=== PATIENT | female | born 1950 | race Caucasian/White ===

== ENCOUNTER → 2019-02-09 | Day surgery (SDC) | payer BC, OTHER ==
[~2019-02-09] MED LIST: Lidocaine 1% 20 ML MDV ONE
[2019-02-09 14:15] VITALS: BP 100/50; PULSE 66
== END ==
LOC: CC.SDS 10:23
PROVIDERS: ATTEND Family Medicine
DX: I83.12 Varicose veins of left lower extremity with inflammation (principal); I83.11 Varicose veins of right lower extremity with inflammation

== ENCOUNTER 2019-06-18 22:37 | Emergency (ER) | payer BC, OTHER ==
[2019-06-18 22:45] VITALS: PULSE 107
[2019-06-18] MEDS ORDERED: Albuterol/Ipratropium 3.0-0.5 MG/3 ML Neb Soln NEB ONE (22:57)
--- NOTE | 2019-06-18 23:16 | EDM.PDOC ---
ED HPI GENERAL MEDICAL PROBLEM - General Chief Complaint: Respiratory Problem Stated Complaint: cough, fever Time Seen by Provider: 06/18/19 22:57 Source of Information: Reports: Patient History Limitations: Reports: No Limitations - History of Present Illness INITIAL COMMENTS - FREE TEXT/NARRATIVE: This patient is a 69 year old female that presents to the ER. Patient reports that 2 days ago having congestion, nonproductive cough. She reports seeing her PCP and being prescribed abx. Patient reports she has worsened the last 2 days. She reports now she has headache, body aches, congestion, chest congestion, nonproductive cough, nausea, and dry heaving. Onset Date: 06/16/19 Duration: Day(s): (2) Location: Reports: Head, Chest Quality: Reports: Ache Severity: Moderate Improves with: Reports: None Worsens with: Reports: None Associated Symptoms: Reports: Cough, Fever/Chills, Headaches, Malaise, Nausea/ Vomiting, Shortness of Breath. Denies: Confusion, Chest Pain, cough w sputum, Diaphoresis, Loss of Appetite, Rash, Seizure, Syncope, Weakness Generalized Pain Score (Numeric/FACES): 4 - Related Data Allergies Allergy/AdvReac Type Severity Reaction Status Date / Time meperidine HCl [From Demerol] Allergy Unknown Rash Verified 06/18/19 22:38 pentazocine lactate Allergy Unknown Rash Verified 06/18/19 22:38 [From Talwin] promazine HCl [From Sparine] Allergy Unknown Rash Verified 06/18/19 22:38 levofloxacin [From Levaquin] Allergy Itching Verified 06/18/19 22:38 Home Meds: Home Meds Amitriptyline HCl 50 mg PO BEDTIME 12/06/13 [History] Cyclobenzaprine [Flexeril] 10 mg PO BID PRN 12/06/13 [History] Esomeprazole Magnesium [Nexium] 40 mg PO BEDTIME 12/06/13 [History] Hydrochlorothiazide 12.5 mg PO DAILY 12/06/13 [History] Levothyroxine Sodium [Synthroid] 75 mcg PO DAILY 12/06/13 [History] atenoloL [Tenormin] 25 mg PO BID 12/06/13 [History] Albuterol [Ventolin HFA] 2 puff INH Q4H PRN 12/07/13 [History] Budesonide [Pulmicort Flexhaler] 2 puff IH BID PRN 12/07/13 [History] Montelukast [Singulair] 10 mg PO DAILY 09/23/15 [History] Fluticasone Propionate [Flovent] 50 mcg NASBOTH DAILY PRN 02/24/18 [History] Fluticasone/Vilanterol [Breo Ellipta 200-25 MCG Inhalation Kit] 1 each INH BEDTIME 02/24/18 [History] Ipratropium/Albuterol Sulfate [Iprat-Albut 0.5-3(2.5) mg/3 ml] 1 each INH ASDIRECTED PRN 02/24/18 [History] Pramipexole Di-HCl [Pramipexole Dihydrochloride] 0.5 mg PO BEDTIME 02/24/18 [ History] Torsemide 20 mg PO DAILY 02/24/18 [History] cefUROXime axetil [Cefuroxime] 500 mg PO BID 06/18/19 [History] methylPREDNISolone [Medrol Dose Pack] 4 mg PO ASDIRECTED #1 dospk 06/18/19 [Rx] Past Medical History HEENT History: Reports: Cataract Cardiovascular History: Reports: Blood Clots/VTE/DVT, Heart Murmur Respiratory History: Reports: Asthma, Bronchitis, Recurrent Gastrointestinal History: Reports: Chronic Constipation, GERD, PUD Genitourinary History: Reports: None 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: Musculoskeletal History: Reports: Arthritis, Fibromyalgia Neurological History: Reports: Concussion, Vertigo Endocrine/Metabolic History: Reports: Hypothyroidism - Past Surgical History HEENT Surgical History: Reports: Cataract Surgery, Naso-Sinus Surgery, Tonsillectomy Cardiovascular Surgical History: Reports: Varicose Respiratory Surgical History: Reports: None GI Surgical History: Reports: Appendectomy, Cholecystectomy, Colonoscopy, EGD Female Surgical History: Reports: Hysterectomy Endocrine Surgical History: Reports: None Neurological Surgical History: Reports: None Musculoskeletal Surgical History: Reports: None Social & Family History - Family History Family Medical History: Noncontributory - Tobacco Use Smoking Status *Q: Never Smoker - Caffeine Use Caffeine Use: Reports: Coffee - Recreational Drug Use Recreational Drug Use: No ED ROS GENERAL - Review of Systems Review Of Systems: See Below Constitutional: Reports: Fever, Chills, Malaise, Fatigue HEENT: Reports: Sinus Problem Respiratory: Reports: Shortness of Breath, Wheezing, Cough. Denies: Sputum Cardiovascular: Reports: No Symptoms Endocrine: Reports: No Symptoms GI/Abdominal: Reports: Nausea. Denies: Abdominal Pain, Vomiting : Reports: No Symptoms Musculoskeletal: Reports: Other (body aches) Skin: Reports: No Symptoms Neurological: Reports: Headache Psychiatric: Reports: No Symptoms Hematologic/Lymphatic: Reports: No Symptoms Immunologic: Reports: No Symptoms ED EXAM, GENERAL - Physical Exam Exam: See Below Exam Limited By: No Limitations General Appearance: Alert, WD/WN, No Apparent Distress, Other (appears acutely ill) Eye Exam: Bilateral Eye: Normal Inspection, PERRL Ears: Normal External Exam, Normal Canal, Hearing Grossly Normal, Normal TMs Ear Exam: Bilateral Ear: Auricle Normal, Canal Normal, TM normal Nose: Normal Inspection, Normal Mucosa, No Blood Throat/Mouth: Normal Inspection, Normal Lips, Normal Teeth, Normal Gums, Normal Oropharynx, Normal Voice, No Airway Compromise Head: Atraumatic, Normocephalic Neck: Normal Inspection, Supple, Non-Tender, Full Range of Motion Respiratory/Chest: No Respiratory Distress, No Accessory Muscle Use, Wheezing ( moderate throughout, inspiratory and expiratory. ) Cardiovascular: Normal Peripheral Pulses, No Edema, No Gallop, No JVD, No Murmur , No Rub, Tachycardia (104 on exam) Peripheral Pulses: 2+: Radial (L), Radial (R), Posterior Tibial (L), Posterior Tibial (R) GI/Abdominal: Soft, Non-Tender Back Exam: Normal Inspection Extremities: Normal Inspection, Normal Range of Motion, Non-Tender, No Pedal Edema, Normal Capillary Refill Neurological: Alert, Oriented Psychiatric: Normal Affect, Normal Mood Skin Exam: Warm, Dry, Intact, Normal Color, No Rash Lymphatic: No Adenopathy Course - Vital Signs Last Recorded V/S: Last Vital Signs Temp 100.8 F H 06/18/19 22:38 Pulse 107 H 06/18/19 22:38 Resp 20 06/18/19 22:38 BP 113/60 06/18/19 23:31 Pulse Ox 97 06/18/19 22:38 - Orders/Labs/Meds Orders: Active Orders 24 hr Category Date Time Status RT Aerosol Therapy [RC] ASDIRECTED Care 06/18/19 22:57 Active Chest 2V [CR] Stat Exams 06/18/19 22:57 Taken CULTURE BLOOD [BC] Stat Lab 06/18/19 22:57 Results CULTURE BLOOD [BC] Stat Lab 06/18/19 23:21 Received methylPREDNISolone Sod Succ [Solu-MEDROL] Med 06/18/19 23:52 Stat 125 mg IM NOW STA Blood Culture x2 Reflex Set [OM.PC] Stat Oth 06/18/19 22:56 Ordered Labs: Laboratory Tests 06/18/19 06/18/19 06/18/19 Range/Units 22:56 23:21 23:21 WBC 6.9 (5.0-10.0) 10^3/uL RBC 4.26 (4.00-5.50) 10^6/uL Hgb 12.9 (12.0-16.0) g/dL Hct 38.6 (37.0-47.0) % MCV 90.6 (82.0-94.0) fL MCH 30.3 (27.0-32.0) pg MCHC 33.4 (33.0-38.0) g/dL RDW Coeff of Neal 14.0 (11.0-15.0) % Plt Count 259 (150-400) 10^3/uL Neut % (Auto) 77.1 (35-85) % Lymph % (Auto) 13.9 (10-55) % [place] % (Auto) 8.9 (0-16) % Eos % (Auto) 0 (0-5) % Baso % (Auto) 0.1 (0-3) % Neut # (Auto) 5.34 (1.80-7.00) 10^3/uL Lymph # (Auto) 0.96 L (1.00-4.80) 10^3/uL [place] # (Auto) 0.62 (0.00-0.80) 10^3/uL Eos # (Auto) 0.00 (0.00-0.45) 10^3/uL Baso # (Auto) 0.01 10^3/uL Sodium 136 (136-145) mEq/L Potassium 3.8 (3.5-5.0) mEq/L Chloride 97 L (98-106) mEq/L Carbon Dioxide 27 (21-32) mmol/L BUN 10 (7-18) mg/dL Creatinine 0.8 (0.6-1.0) mg/dL Est Cr Clr Drug Dosing 48.34 mL/min Estimated GFR (MDRD) > 60 (>=60) mL/min Glucose 119 H (75-99) mg/dL Lactic Acid 1.4 (0.4-2.0) mmol/L Calcium 8.8 (8.4-10.1) mg/dL Total Bilirubin 0.2 (0.0-1.0) mg/dL AST 23 (15-37) U/L ALT 24 (12-78) U/L Alkaline Phosphatase 70 (46-116) U/L C-Reactive Protein 6.2 H (0.2-0.8) mg/dL Total Protein 7.1 (6.4-8.2) g/dL Albumin 3.4 (3.4-5.0) g/dL Meds: Medications Discontinued Medications Generic Name Dose Route Start Last Admin Trade Name Freq PRN Reason Stop Dose Admin Albuterol/Ipratropium 3 ml 06/18/19 22:57 06/18/19 23:14 Duoneb 3.0-0.5 Mg/3 Ml NEB 06/18/19 22:58 3 ml ONETIME ONE Administration - Radiology Interpretation Free Text/Narrative:: CXR: No infiltrates, no pulmonary edema. Departure - Departure Time of Disposition: 23:50 Disposition: Home, Self-Care 01 Condition: Fair Clinical Impression: Acute bronchitis Qualifiers: Bronchitis organism: unspecified organism Qualified Code(s): J20.9 - Acute bronchitis, unspecified - Discharge Information *PRESCRIPTION DRUG MONITORING PROGRAM REVIEWED*: Not Applicable *COPY OF PRESCRIPTION DRUG MONITORING REPORT IN PATIENT CIRO: Not Applicable Prescriptions: methylPREDNISolone [Medrol Dose Pack] 4 mg PO ASDIRECTED #1 dospk Instructions: Shortness of Breath, Adult, [id number], Acute Bronchitis, Adult , [id number] Referrals: PCP,None [Primary Care Provider] - Forms: ED Department Discharge Additional Instructions: Followup with your primary care provider Return to the ER for worsening of condition or any emergent concerns Continue antibiotic as prescribed Medrol Dose Pack as directed: Sent to pharmacy Continue your breathing treatments at home. Sepsis Event Note - Evaluation Sepsis Screening Result: Possible Severe Sepsis Risk - Focused Exam Vital Signs: Vital Signs Temp Pulse Resp BP Pulse Ox 06/18/19 23:31 113/60 02/09/20 22:38 100.8 F H 107 H 20 105/43 L 97 Date Exam was Performed: 06/18/19 Time Exam was Performed: 23:52 - My Orders Last 24 Hours: My Active Orders 06/18/19 22:56 Blood Culture x2 Reflex Set [OM.PC] Stat 06/18/19 22:57 RT Aerosol Therapy [RC] ASDIRECTED Chest 2V [CR] Stat CULTURE BLOOD [BC] Stat 06/18/19 23:21 CULTURE BLOOD [BC] Stat 06/18/19 23:52 methylPREDNISolone Sod Succ [Solu-MEDROL] 125 mg IM NOW STA - Assessment/Plan Last 24 Hours: My Active Orders 06/18/19 22:56 Blood Culture x2 Reflex Set [OM.PC] Stat 06/18/19 22:57 RT Aerosol Therapy [RC] ASDIRECTED Chest 2V [CR] Stat CULTURE BLOOD [BC] Stat 06/18/19 23:21 CULTURE BLOOD [BC] Stat 06/18/19 23:52 methylPREDNISolone Sod Succ [Solu-MEDROL] 125 mg IM NOW STA Plan: PLEASE SEE RN NOTE FOR PFSH
[2019-06-18 23:30] LABS: CHLORIDE,CL 97 mEq/L (98-106); SODIUM,NA 136 mEq/L (136-145)
[2019-06-18 23:32] VITALS: BP 113/60
[2019-06-18] MEDS ORDERED: methylPREDNISolone Sodium Succinate 125 MG/2 ML SDV IM STA (23:52)
== END 2019-06-19 00:03 | disposition home or self-care (01) ==
LOC: CC.ED 22:37
DX: J20.9 Acute bronchitis, unspecified (principal); K21.9 Gastro-esophageal reflux disease without esophagitis; J45.909 Unspecified asthma, uncomplicated; M19.90 Unspecified osteoarthritis, unspecified site; E03.9 Hypothyroidism, unspecified; Z86.718 Personal history of other venous thrombosis and embolism; Z88.8 Allergy status to other drugs, medicaments and biological substances; Z79.899 Other long term (current) drug therapy
CPT/HCPCS: 36415; 71046; 80053; 83605; 85025; 86140; 87040; 87804; 94640; 96372; 99284-25; J2930; J7620-GY

== ENCOUNTER → 2019-08-25 | Day surgery (SDC) | payer BC, OTHER ==
[~2019-08-25] MED LIST changes: +Lactated Ringers 1,000 ML IV SCH; -Lidocaine 1% 20 ML MDV ONE; +Propofol 200 MG/20 ML SDV IV ONE; +fentaNYL 100 MCG/2 ML SDV IV ONE
[2019-08-25] MEDS: Lactated Ringers 1,000 ML IV SCH (11:12)
--- NOTE | 2019-08-25 12:12 | OR ---
DATE OF OPERATION: PREOPERATIVE DIAGNOSIS: 1. FAMILY HISTORY OF COLON CANCER. 2. OBSTIPATION. POSTOPERATIVE DIAGNOSIS: 1. FAMILY HISTORY OF COLON CANCER. 2. OBSTIPATION. SURGEON: Adam Pérez MD PROCEDURE: DIAGNOSTIC FULL-LENGTH COLONOSCOPY WITH SNARE POLYPECTOMY X1. ANESTHESIA: MAC. COMPLICATIONS: None. SPECIMEN: Tubular adenoma at cecum, 0.5 cm in size. FINDINGS: 1. Full-length colonoscopy. 2. Tubular adenoma at cecal pouch, approximately 5 mm. 3. Poor bowel prep. RECOMMENDATIONS: Followup colonoscopy every 5 years. INDICATIONS: The patient has a family history of colon cancer. It has been 5 years since her last scope. She went to her primary provider with complaints of constipation. Diagnostic endoscopy was ordered. DESCRIPTION OF PROCEDURE: The patient was prepped and draped, placed in the left lateral decubitus position. A lubricated Olympus colonoscope was inserted and easily advanced to the cecum. Direct visualization of the ileocecal valve and appendiceal orifice was accomplished. Bowel prep was very poor. We had to irrigate immensely in the right colon, and there were a few areas in this transverse and multiple in the sigmoid that just could not be irrigated due to the solidity of the stool, and the scope kept plugging. We spent much time on the right colon irrigating so we could get a good look. In the cecal pouch, the patient had 1 small 5 mm tubular adenoma removed easily with a snare and suctioned into polyp trap #1. Throughout the rest of the colon, I could find no other polyps, masses, ulceration, or bleeding sites. No vascular abnormalities or signs of diverticula. The rectal vault appeared benign. Retroflexion showed no perianal lesions. Air was suctioned, and the scope was removed without complication. MALCOM/MERVAT /[id number]
[2019-08-25 12:31] VITALS: BP 114/44; PULSE 73
== END ==
LOC: CC.SDS 10:27
PROVIDERS: ATTEND Family Medicine
DX: D12.0 Benign neoplasm of cecum (principal); E78.5 Hyperlipidemia, unspecified; E03.9 Hypothyroidism, unspecified; J45.909 Unspecified asthma, uncomplicated; Z79.890 Hormone replacement therapy; Z79.899 Other long term (current) drug therapy; Z80.0 Family history of malignant neoplasm of digestive organs; Z88.1 Allergy status to other antibiotic agents; Z88.8 Allergy status to other drugs, medicaments and biological substances; Z88.5 Allergy status to narcotic agent; Z98.890 Other specified postprocedural states
CPT/HCPCS: 45385; J2704; J3010; J7120

== ENCOUNTER 2020-02-11 22:13 | Emergency (ER) | payer BC, OTHER ==
[2020-02-11 22:49] LABS: CHLORIDE,CL 99 mEq/L (98-106); SODIUM,NA 134 mEq/L (136-145)
[2020-02-11] MEDS: Ondansetron 8 MG in Sodium Chloride 0.9% 50 ML IV STA (23:09)
--- NOTE | 2020-02-11 23:31 | EDM.PDOC ---
ED HPI GENERAL MEDICAL PROBLEM - General Chief Complaint: Respiratory Problem Stated Complaint: SOB, Chest pressure R/T Covid + Time Seen by Provider: 02/11/20 22:13 Source of Information: Reports: Patient History Limitations: Reports: No Limitations - History of Present Illness INITIAL COMMENTS - FREE TEXT/NARRATIVE: Pt tested positive COVID on Wednesday for preop and was asymptomatic at that time. She began to have symptoms Wednesday evening and was "doing OK" until Wednesday night when she started to have harsh cough and SOB. Symptoms have continued to get worse and today she did call [facility] ER and was started on Dexamethasone 6 mg po as she did not want to come in. She was also instructed to use her albuterol inhaler every 4 hours which she had not been doing. She states that she has been very nauseated but not vomited the last 2 days but has not been eating or drinking well because of it. She states that the last 2 days the cough is worse and she feels very tight in her chest like someone is sitting on her. She states the highest her temp has been is 100.9 and if she takes Tylenol it will go down to the 97 range. She states that she will be sweating and in a few minutes she is shivering and freezing. She came in tonight as her symptoms were getting worse. When she arrived her she has respirations at 36-40 on room air with very harsh cough. She states it feels difficult to take a breathe as her chest feels tight. Cough is non productive and very harsh. very nauseated with it. She is visibly sweating to her head and then has shaking chills shortly after that. She is pale. Onset: Gradual Location: Reports: Chest Associated Symptoms: Reports: Cough, Diaphoresis, Fever/Chills, Shortness of Breath, Weakness Treatments SPECIAL EDUCATION DIRECTOR: Reports: Acetaminophen - Related Data Allergies Allergy/AdvReac Type Severity Reaction Status Date / Time meperidine HCl [From Demerol] Allergy Unknown Rash Verified 02/11/20 22:31 pentazocine lactate Allergy Unknown Rash Verified 02/11/20 22:31 [From Talwin] promazine HCl [From Sparine] Allergy Unknown Rash Verified 02/11/20 22:31 levofloxacin [From Levaquin] Allergy Itching Verified 02/11/20 22:31 Home Meds: Home Meds Amitriptyline HCl 50 mg PO BEDTIME 07/30/14 [History] Esomeprazole Magnesium [Nexium] 40 mg PO BEDTIME 12/06/13 [History] Hydrochlorothiazide 12.5 mg PO DAILY 12/06/13 [History] Levothyroxine Sodium [Synthroid] 75 mcg PO DAILY 12/06/13 [History] atenoloL [Tenormin] 25 mg PO BID 12/06/13 [History] Albuterol [Ventolin HFA] 2 puff INH Q4H PRN 12/07/13 [History] Montelukast [Singulair] 10 mg PO DAILY 09/23/15 [History] Fluticasone Propionate [Flovent] 1 spray NASBOTH BID 02/24/18 [History] Fluticasone/Vilanterol [Breo Ellipta 200-25 MCG Inhalation Kit] 1 each INH BEDTIME 02/24/18 [History] Ipratropium/Albuterol Sulfate [Iprat-Albut 0.5-3(2.5) mg/3 ml] 1 each NEB ASDIRECTED PRN 02/24/18 [History] Pramipexole Di-HCl [Pramipexole Dihydrochloride] 0.5 mg PO BEDTIME 02/24/18 [History] Oxybutynin Chloride [Oxybutynin Chloride ER] 10 mg PO DAILY 08/08/19 [History] Rosuvastatin Calcium 5 mg PO DAILY 08/08/19 [History] amLODIPine Besylate [Amlodipine Besylate] 50 mg PO DAILY 08/08/19 [History] dexAMETHasone [Dexamethasone] 6 mg PO DAILY 02/11/20 [History] Past Medical History HEENT History: Reports: Cataract Cardiovascular History: Reports: Blood Clots/VTE/DVT, Heart Murmur Other Cardiovascular History: Had bilateral blood clots in legs about 30 years ago Respiratory History: Reports: Asthma, Bronchitis, Recurrent Gastrointestinal History: Reports: Chronic Constipation, GERD, PUD Genitourinary History: Reports: 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: Musculoskeletal History: Reports: Arthritis, Fibromyalgia Neurological History: Reports: Concussion, Vertigo Endocrine/Metabolic History: Reports: Hypothyroidism - Past Surgical History HEENT Surgical History: Reports: Cataract Surgery, Naso-Sinus Surgery, Tonsillectomy Cardiovascular Surgical History: Reports: Varicose Respiratory Surgical History: Reports: None GI Surgical History: Reports: Appendectomy, Cholecystectomy, Colonoscopy, EGD Female Surgical History: Reports: Hysterectomy Endocrine Surgical History: Reports: None Neurological Surgical History: Reports: None Musculoskeletal Surgical History: Reports: None Social & Family History - Family History Family Medical History: Noncontributory - Tobacco Use Smoking Status *Q: Never Smoker - Caffeine Use Caffeine Use: Reports: None - Recreational Drug Use Recreational Drug Use: No - Living Situation & Occupation Living situation: Reports: , with Spouse Occupation: Employed ED ROS GENERAL - Review of Systems Review Of Systems: See Below Constitutional: Reports: Fever, Chills, Weakness, Fatigue, Decreased Appetite HEENT: Reports: No Symptoms Respiratory: Reports: Shortness of Breath, Wheezing, Cough. Denies: Sputum Cardiovascular: Denies: Chest Pain, Edema GI/Abdominal: Reports: No Symptoms. Denies: Abdominal Pain Musculoskeletal: Reports: No Symptoms Skin: Reports: No Symptoms Neurological: Reports: No Symptoms Psychiatric: Reports: Anxiety ED EXAM, GENERAL - Physical Exam Exam: See Below Exam Limited By: No Limitations General Appearance: Alert, Anxious, Moderate Distress Ears: Normal External Exam, Normal Canal, Normal TMs Throat/Mouth: Normal Inspection, Normal Oropharynx Head: Atraumatic, Normocephalic Neck: Normal Inspection, Supple, Non-Tender Respiratory/Chest: Respiratory Distress, Rhonchi, Wheezing, Other (respiration are shallow and rapid.) Cardiovascular: Regular Rate, Rhythm, No Edema GI/Abdominal: Normal Bowel Sounds, Soft, Non-Tender Extremities: Normal Inspection, Normal Range of Motion, No Pedal Edema Neurological: Alert, Oriented Skin Exam: Warm, Intact, Diaphoretic, Pallor Course - Vital Signs Last Recorded V/S: Last Vital Signs Temp 97.6 F 02/11/20 23:04 Pulse 87 02/11/20 23:04 Resp 24 H 02/11/20 23:04 BP 132/58 L 02/11/20 23:04 Pulse Ox 96 02/11/20 23:04 - Orders/Labs/Meds Orders: Active Orders 24 hr Category Date Time Status Chest 1V Frontal [CR] Stat Exams 02/11/20 21:56 Stop Req Chest 2V [CR] Stat Exams 02/11/20 23:09 Ordered Ondansetron [Zofran] 8 mg Med 02/11/20 23:02 Ordered Sodium Chloride 0.9% [Normal Saline] 50 ml IV NOW Isolation [COMM] Routine Oth 02/11/20 22:43 Active Medication Orders Ondansetron HCl 8 mg/ Sodium (Chloride) 54 mls @ 100 mls/hr IV NOW STA Stop: 02/11/20 23:34 Last Admin: 02/11/20 23:09 Dose: 100 mls/hr Documented by: [place] Labs: Laboratory Tests 02/11/20 02/11/20 02/11/20 Range/Units 22:30 22:30 22:30 WBC 6.7 (5.0-10.0) 10^3/uL RBC 4.66 (4.00-5.50) 10^6/uL Hgb 13.9 (12.0-16.0) g/dL Hct 41.3 (37.0-47.0) % MCV 88.6 (82.0-94.0) fL MCH 29.8 (27.0-32.0) pg MCHC 33.7 (33.0-38.0) g/dL RDW Coeff of Neal 14.2 (11.0-15.0) % Plt Count 263 (150-400) 10^3/uL Neut % (Auto) 86.3 H (35-85) % Lymph % (Auto) 9.6 L (10-55) % [place] % (Auto) 3.9 (0-16) % Eos % (Auto) 0 (0-5) % Baso % (Auto) 0.2 (0-3) % Neut # (Auto) 5.75 (1.80-7.00) 10^3/uL Lymph # (Auto) 0.64 L (1.00-4.80) 10^3/uL [place] # (Auto) 0.26 (0.00-0.80) 10^3/uL Eos # (Auto) 0.00 (0.00-0.45) 10^3/uL Baso # (Auto) 0.01 10^3/uL D-Dimer, Quantitative 0.51 H (0.00-0.50) Sodium 134 L (136-145) mEq/L Potassium 4.3 (3.5-5.0) mEq/L Chloride 99 (98-106) mEq/L Carbon Dioxide 23 (21-32) mmol/L BUN 17 (7-18) mg/dL Creatinine 0.9 (0.6-1.0) mg/dL Est Cr Clr Drug Dosing 49.49 mL/min Estimated GFR (MDRD) > 60 (>=60) mL/min Glucose 153 H D (75-99) mg/dL Lactic Acid (0.4-2.0) mmol/L Calcium 8.8 (8.4-10.1) mg/dL Total Bilirubin 0.2 (0.0-1.0) mg/dL AST 59 H (15-37) U/L ALT 78 (12-78) U/L Alkaline Phosphatase 78 (46-116) U/L C-Reactive Protein 3.7 H (0.2-0.8) mg/dL Total Protein 7.2 (6.4-8.2) g/dL Albumin 3.3 L (3.4-5.0) g/dL 02/11/20 Range/Units 22:30 WBC (5.0-10.0) 10^3/uL RBC (4.00-5.50) 10^6/uL Hgb (12.0-16.0) g/dL Hct (37.0-47.0) % MCV (82.0-94.0) fL MCH (27.0-32.0) pg MCHC (33.0-38.0) g/dL RDW Coeff of Neal (11.0-15.0) % Plt Count (150-400) 10^3/uL Neut % (Auto) (35-85) % Lymph % (Auto) (10-55) % [place] % (Auto) (0-16) % Eos % (Auto) (0-5) % Baso % (Auto) (0-3) % Neut # (Auto) (1.80-7.00) 10^3/uL Lymph # (Auto) (1.00-4.80) 10^3/uL [place] # (Auto) (0.00-0.80) 10^3/uL Eos # (Auto) (0.00-0.45) 10^3/uL Baso # (Auto) 10^3/uL D-Dimer, Quantitative (0.00-0.50) Sodium (136-145) mEq/L Potassium (3.5-5.0) mEq/L Chloride (98-106) mEq/L Carbon Dioxide (21-32) mmol/L BUN (7-18) mg/dL Creatinine (0.6-1.0) mg/dL Est Cr Clr Drug Dosing mL/min Estimated GFR (MDRD) (>=60) mL/min Glucose (75-99) mg/dL Lactic Acid 2.3 H (0.4-2.0) mmol/L Calcium (8.4-10.1) mg/dL Total Bilirubin (0.0-1.0) mg/dL AST (15-37) U/L ALT (12-78) U/L Alkaline Phosphatase (46-116) U/L C-Reactive Protein (0.2-0.8) mg/dL Total Protein (6.4-8.2) g/dL Albumin (3.4-5.0) g/dL Meds: Medications Generic Name Dose Route Start Last Admin Trade Name Freq PRN Reason Stop Dose Admin Ondansetron HCl 8 mg/ Sodium 54 mls @ 100 mls/hr 02/11/20 23:02 02/11/20 23:09 Chloride IV 02/11/20 23:34 100 mls/hr NOW STA Administration - Re-Assessments/Exams Free Text/Narrative Re-Assessment/Exam: 02/11/20 23:[address] [facility] and they do not have a COVID bed available 02/11/20 23:30 Called [facility] and they do not have a COVID bed available 02/11/20 2332 Called [facility] and they have bed available and will call back when MD available 02/11/20 1735 [facility] returned call and talked to Dr. Gann who did accept pt. Departure - Departure Time of Disposition: 00:11 Disposition: DC/Tfer to Acute Hospital 02 Condition: Serious Clinical Impression: COVID-19, Pneumonia due to 2019 novel coronavirus - Discharge Information *PRESCRIPTION DRUG MONITORING PROGRAM REVIEWED*: Not Applicable *COPY OF PRESCRIPTION DRUG MONITORING REPORT IN PATIENT CIRO: Not Applicable Additional Instructions: Transfer ALS to [facility] per [place] [facility]. Sepsis Event Note (ED) - Evaluation Sepsis Screening Result: Possible Sepsis Risk - Focused Exam Vital Signs: Vital Signs Temp Pulse Resp BP Pulse Ox 02/11/20 23:04 97.6 F 87 24 H 132/58 L 96 02/11/20 22:13 96.8 F L 92 28 H 128/71 95 - Problem List & Annotations (1) COVID-19 SNOMED Code(s): 497405480 Code(s): U07.1 - COVID-19 Status: Acute Priority: High Current Visit: Yes (2) Pneumonia due to 2019 novel coronavirus SNOMED Code(s): 651672466215710469 Code(s): U07.1 - COVID-19; J12.89 - OTHER VIRAL PNEUMONIA Status: Acute Priority: High Current Visit: Yes - Problem List Review Problem List Initiated/Reviewed/Updated: Yes - My Orders Last 24 Hours: My Active Orders 02/11/20 21:56 Chest 1V Frontal [CR] Stat 02/11/20 22:43 Isolation [COMM] Routine 02/11/20 23:02 Ondansetron [Zofran] 8 mg Sodium Chloride 0.9% [Normal Saline] 50 ml IV NOW 02/11/20 23:09 Chest 2V [CR] Stat - Assessment/Plan Last 24 Hours: My Active Orders 02/11/20 21:56 Chest 1V Frontal [CR] Stat 02/11/20 22:43 Isolation [COMM] Routine 02/11/20 23:02 Ondansetron [Zofran] 8 mg Sodium Chloride 0.9% [Normal Saline] 50 ml IV NOW 02/11/20 23:09 Chest 2V [CR] Stat
[2020-02-12] MEDS: Enoxaparin 40 MG/0.4 ML Syringe SUBCUT STA (00:13)
[2020-02-12 00:44] VITALS: BP 117/71; PULSE 86
== END 2020-02-12 01:25 ==
LOC: CC.ED 22:13
DX: U07.1 COVID-19 (principal); J12.89 Other viral pneumonia; J45.909 Unspecified asthma, uncomplicated; K21.9 Gastro-esophageal reflux disease without esophagitis; E03.9 Hypothyroidism, unspecified; Z88.8 Allergy status to other drugs, medicaments and biological substances; Z79.899 Other long term (current) drug therapy
CPT/HCPCS: 71046; 80053; 83605; 85025; 85379; 86140; 96365; 96372; 99285-25; J1650; J2405; J7050

== ENCOUNTER 2021-04-13 00:14 | Emergency (ER) | payer OTHER ==
[2021-04-13] MEDS ORDERED: Ondansetron 4 MG/2 ML SDV IVPUSH PRN (00:34)
[2021-04-13] MEDS ORDERED: Sodium Chloride 0.9% 10 ML Syringe FLUSH PRN (00:34)
[2021-04-13] MEDS ORDERED: Sucralfate Suspension 1 GM/10 ML Cup PO ONE (00:34)
[2021-04-13] MEDS ORDERED: Sodium Chloride 0.9% 1,000 ML IV ONE (00:34)
[2021-04-13] MEDS ORDERED: fentaNYL 50 MCG/ML SDV IVPUSH ONE (00:39)
[2021-04-13] MEDS ORDERED: Ondansetron 4 MG/2 ML SDV IVPUSH ONE (00:48)
--- NOTE | 2021-04-13 00:48 | EDM.PDOC ---
ED HPI GENERAL MEDICAL PROBLEM - General Chief Complaint: General Stated Complaint: fever, abd pain Time Seen by Provider: 04/13/21 00:35 Source of Information: Reports: Patient History Limitations: Reports: No Limitations - History of Present Illness INITIAL COMMENTS - FREE TEXT/NARRATIVE: Patient presents to the Ed with abdominal pain, fever, feeling unwell since 04/10. Patient has a history of covid 19 infection one year ago. Has had covid vaccination with booster on 04/09/2021. Shortly after her covid booster she developed body aches, fevers, abdominal pain and nausea. she was seen on at the clinic on 04/10/2021 for an im injection for nausea and was sent home with nausea medication which she has been taking. States her abdominal pain has been getting worse since then with minimal passing of gas, no constipation. she took two dulculax with minimal output yesterday. She has been throwing up to the point of dry heaves today. She has been losing weight over the last month or so and has had a thyroid ultrasound that was normal and an upper gi with small bowel follow through and is set to see Dr. Ibarra in [place] for upper and lower endoscopy. She is having cramping of her hands tonight and cramping of the abdomen. Onset Date: 04/10/21 Duration: Getting Worse Location: Reports: Abdomen, Generalized Severity: Moderate Associated Symptoms: Reports: Fever/Chills, Headaches, Loss of Appetite, Nausea/Vomiting, Weakness Treatments PROCUREMENT PROFESSIONAL: Reports: Other (see below) (zofran ) - Related Data Allergies Allergy/AdvReac Type Severity Reaction Status Date / Time meperidine HCl [From Demerol] Allergy Unknown Rash Verified 04/13/21 00:15 pentazocine lactate Allergy Unknown Rash Verified 04/13/21 00:15 [From Talwin] promazine HCl [From Sparine] Allergy Unknown Rash Verified 04/13/21 00:15 levofloxacin [From Levaquin] Allergy Itching Verified 04/13/21 00:15 Home Meds: Home Meds Hydrochlorothiazide 12.5 mg PO DAILY 12/06/13 [History] atenoloL [Tenormin] 25 mg PO BID 12/06/13 [History] Albuterol [Ventolin HFA] 2 puff INH Q4H PRN 07/31/14 [History] Montelukast [Singulair] 10 mg PO DAILY 09/23/15 [History] Fluticasone Propionate [Flovent] 1 spray NASBOTH BID 02/24/18 [History] Fluticasone/Vilanterol [Breo Ellipta 200-25 MCG Inhalation Kit] 1 each INH BEDTIME 02/24/18 [History] Ipratropium/Albuterol Sulfate [Iprat-Albut 0.5-3(2.5) mg/3 ml] 1 each NEB ASDIRECTED PRN 02/24/18 [History] Pramipexole Di-HCl [Pramipexole Dihydrochloride] 0.5 mg PO BEDTIME 02/24/18 [History] Oxybutynin Chloride [Oxybutynin Chloride ER] 10 mg PO DAILY 08/08/19 [History] metroNIDAZOLE [Flagyl] 500 mg PO Q12H #16 tab 04/13/21 [Rx] Past Medical History HEENT History: Reports: Cataract Cardiovascular History: Reports: Blood Clots/VTE/DVT, Heart Murmur Other Cardiovascular History: Had bilateral blood clots in legs about 30 years ago Respiratory History: Reports: Asthma, Bronchitis, Recurrent Gastrointestinal History: Reports: Chronic Constipation, GERD, PUD Genitourinary History: Reports: None HR RECRUITER History: Reports: Musculoskeletal History: Reports: Arthritis, Fibromyalgia Neurological History: Reports: Concussion, Vertigo Endocrine/Metabolic History: Reports: Hypothyroidism - Past Surgical History HEENT Surgical History: Reports: Cataract Surgery, Naso-Sinus Surgery, Tonsillectomy Cardiovascular Surgical History: Reports: Varicose Respiratory Surgical History: Reports: None GI Surgical History: Reports: Appendectomy, Cholecystectomy, Colonoscopy, EGD Female Surgical History: Reports: Hysterectomy Endocrine Surgical History: Reports: None Neurological Surgical History: Reports: None Musculoskeletal Surgical History: Reports: None Social & Family History - Family History Family Medical History: No Pertinent Family History - Tobacco Use Tobacco Use Status *Q: Never Tobacco User - Caffeine Use Caffeine Use: Reports: None - Recreational Drug Use Recreational Drug Use: No Drug Use in Last 12 Months: No - Living Situation & Occupation Living situation: Reports: , with Spouse Occupation: Employed ED ROS GENERAL - Review of Systems Review Of Systems: See Below Constitutional: Reports: Fever, Chills, Malaise, Weakness, Fatigue, Decreased Appetite, Weight Loss HEENT: Reports: No Symptoms. Denies: Throat Pain, Throat Swelling Respiratory: Reports: No Symptoms. Denies: Shortness of Breath, Cough Cardiovascular: Reports: Chest Pain. Denies: Dyspnea on Exertion, Edema Endocrine: Reports: Fatigue GI/Abdominal: Reports: Abdominal Pain, Anorexia, Constipation, Decreased Appetite, Nausea, Vomiting. Denies: Black Stool, Bloody Stool : Reports: Other (decreased) Musculoskeletal: Reports: Muscle Pain Skin: Reports: No Symptoms Psychiatric: Reports: No Symptoms Hematologic/Lymphatic: Reports: No Symptoms Immunologic: Reports: No Symptoms ED EXAM, GI/ABD - Physical Exam Exam: See Below Exam Limited By: No Limitations General Appearance: Alert, Moderate Distress Eyes: Bilateral: Normal Appearance, EOMI Ears: Normal External Exam Nose: Normal Inspection Throat/Mouth: Normal Teeth, Normal Voice, Other (dry lips and mucous membranes) Neck: Normal Inspection Respiratory/Chest: No Respiratory Distress, Lungs Clear, Normal Breath Sounds, No Accessory Muscle Use Cardiovascular: Normal Peripheral Pulses, Regular Rate, Rhythm GI/Abdominal Exam: Tender (lower abdomen no rebound, moderate to palpation, diminished bowel sounds) Extremities: Normal Inspection, Normal Range of Motion Neurological: Alert, Oriented, CN II-XII Intact, Normal Cognition Psychiatric: Anxious Skin Exam: Warm #1 Interpretation EKG Date: 04/13/21 Time: 01:00 Rhythm: NSR Rate (Beats/Min): 76 [place]: Normal P-Wave: Present QRS: Normal ST-T: Normal QT: Normal EKG Interpretation Comments: no stemi Course - Vital Signs Last Recorded V/S: Last Vital Signs Temp 38.3 C H 04/13/21 01:33 Pulse 83 04/13/21 01:33 Resp 18 04/13/21 01:33 BP 107/50 L 04/13/21 01:33 Pulse Ox 98 04/13/21 01:33 - Orders/Labs/Meds Orders: Active Orders 24 hr Category Date Time Status Peripheral IV Care [RC] . DIRECTED Care 04/13/21 00:35 Active Abdomen Pelvis w Cont [CT] Stat Exams 04/13/21 00:34 Taken Chest 2V [CR] Stat Exams 04/13/21 00:34 Taken CULTURE BLOOD [BC] Stat Lab 04/13/21 01:08 Received Ondansetron [Zofran] Med 12/05/21 00:34 Active 4 mg IVPUSH Q6H PRN Sodium Chloride 0.9% [Normal Saline] 1,000 ml Med 04/13/21 01:00 Active IV ASDIRECTED Sodium Chloride 0.9% [Saline Flush] Med 04/13/21 00:34 Active 10 ml FLUSH ASDIRECTED PRN Peripheral IV Insertion Adult [OM.PC] Routine Oth 04/13/21 00:34 Ordered Medication Orders Sodium Chloride (Normal Saline) 1,000 mls @ 1,000 mls/hr IV ASDIRECTED ARLENE Ondansetron HCl (Ondansetron 4 Mg/2 Ml Sdv) 4 mg IVPUSH Q6H PRN PRN Reason: Nausea Sodium Chloride (Sodium Chloride 0.9% 10 Ml Syringe) 10 ml FLUSH ASDIRECTED PRN PRN Reason: Keep Vein Open Labs: Laboratory Tests 04/13/21 04/13/21 04/13/21 Range/Units 00:34 00:34 00:34 WBC 10.9 (4.0-11.0) 10^3/uL RBC 5.26 (4.00-5.50) x10^6/uL Hgb 15.3 (12.0-16.0) g/dL Hct 44.3 (37.0-47.0) % MCV 84.2 (83.0-97.0) fL MCH 29.1 (27.0-32.0) pg MCHC 34.5 (32.0-36.0) g/dL RDW Coeff of Neal 13.9 (11.0-15.0) % Plt Count 205 (150-400) 10^3/uL MPV 9.4 fL Sodium 138 (136-145) mEq/L Potassium 3.4 L (3.5-5.0) mEq/L Chloride 101 (98-106) mEq/L Carbon Dioxide 22 (21-32) mmol/L BUN 16 (7-18) mg/dL Creatinine 0.8 (0.6-1.0) mg/dL Est Cr Clr Drug Dosing TNP Estimated GFR (MDRD) > 60 (>=60) mL/min Glucose 119 H D (75-99) mg/dL Lactic Acid (0.4-2.0) mmol/L Calcium 8.8 (8.4-10.1) mg/dL Magnesium 2.1 (1.8-2.4) mg/dL Total Bilirubin 0.6 (0.0-1.0) mg/dL AST 19 (15-37) U/L ALT 17 (12-78) U/L Alkaline Phosphatase 68 (46-116) U/L Troponin I High Sens 7.7 (<=51) pg/mL C-Reactive Protein 3.7 H (0.2-0.8) mg/dL Total Protein 7.0 (6.4-8.2) g/dL Albumin 3.8 (3.4-5.0) g/dL Lipase 30 L (73-393) U/L Urine Color Yellow (YELLOW) Urine Appearance Clear (CLEAR) Urine pH 6.5 (4.5-8.0) Ur Specific [place] 1.015 (1.003-1.020) Urine Protein Negative (NEGATIVE) mg/dL Urine Glucose (UA) Negative (NEGATIVE) mg/dL Urine Ketones 40 H (NEGATIVE) mg/dL Urine Occult Blood Negative (NEGATIVE) Urine Nitrite Negative (NEGATIVE) Urine Bilirubin Negative (NEGATIVE) Urine Urobilinogen 2.0 H (0.2-1.0) EU/dL Ur Leukocyte Esterase Negative (NEGATIVE) 04/13/21 Range/Units 00:34 WBC (4.0-11.0) 10^3/uL RBC (4.00-5.50) x10^6/uL Hgb (12.0-16.0) g/dL Hct (37.0-47.0) % MCV (83.0-97.0) fL MCH (27.0-32.0) pg MCHC (32.0-36.0) g/dL RDW Coeff of Neal (11.0-15.0) % Plt Count (150-400) 10^3/uL MPV fL Sodium (136-145) mEq/L Potassium (3.5-5.0) mEq/L Chloride (98-106) mEq/L Carbon Dioxide (21-32) mmol/L BUN (7-18) mg/dL Creatinine (0.6-1.0) mg/dL Est Cr Clr Drug Dosing Estimated GFR (MDRD) (>=60) mL/min Glucose (75-99) mg/dL Lactic Acid 1.1 (0.4-2.0) mmol/L Calcium (8.4-10.1) mg/dL Magnesium (1.8-2.4) mg/dL Total Bilirubin (0.0-1.0) mg/dL AST (15-37) U/L ALT (12-78) U/L Alkaline Phosphatase (46-116) U/L Troponin I High Sens (<=51) pg/mL C-Reactive Protein (0.2-0.8) mg/dL Total Protein (6.4-8.2) g/dL Albumin (3.4-5.0) g/dL Lipase (73-393) U/L Urine Color (YELLOW) Urine Appearance (CLEAR) Urine pH (4.5-8.0) Ur Specific [place] (1.003-1.020) Urine Protein (NEGATIVE) mg/dL Urine Glucose (UA) (NEGATIVE) mg/dL Urine Ketones (NEGATIVE) mg/dL Urine Occult Blood (NEGATIVE) Urine Nitrite (NEGATIVE) Urine Bilirubin (NEGATIVE) Urine Urobilinogen (0.2-1.0) EU/dL Ur Leukocyte Esterase (NEGATIVE) Meds: Medications Generic Name Dose Route Start Last Admin Trade Name Freq PRN Reason Stop Dose Admin Sodium Chloride 1,000 mls @ 1,000 mls/hr 04/13/21 01:00 Normal Saline IV ASDIRECTED ARLENE Ondansetron HCl 4 mg 04/13/21 00:34 Ondansetron 4 Mg/2 Ml Sdv IVPUSH Q6H PRN Nausea Sodium Chloride 10 ml 04/13/21 00:34 Sodium Chloride 0.9% 10 Ml Syringe FLUSH ASDIRECTED PRN Keep Vein Open Discontinued Medications Generic Name Dose Route Start Last Admin Trade Name Freq PRN Reason Stop Dose Admin Acetaminophen 1,000 mg 04/13/21 01:01 04/13/21 01:29 Acetaminophen 500 Mg Tab PO 04/13/21 01:02 1,000 mg ONETIME ONE Administration Fentanyl 25 mcg 04/13/21 00:39 04/13/21 00:45 Fentanyl 50 Mcg/Ml Sdv IVPUSH 04/13/21 00:40 25 mcg ONETIME ONE Administration Sodium Chloride 1,000 mls @ 999 mls/hr 04/13/21 00:34 04/13/21 00:56 Normal Saline IV 04/13/21 01:34 999 mls/hr .BOLUS ONE Administration Iopamidol 100 ml 04/13/21 00:57 04/13/21 01:27 Iopamidol 755 Mg/Ml 100 Ml Bottle IVPUSH 04/13/21 00:58 100 ml ONETIME ONE Administration Magnesium Citrate 25 ml 04/13/21 01:47 Magnesium Citrate Solution 296 Ml Bottle PO 04/13/21 01:48 ONETIME ONE Metronidazole 1 packet 04/13/21 01:47 Take Home: Metronidazole 500 Mg Tab, 4 Tab Pack PO 04/13/21 01:48 ONETIME ONE Ondansetron HCl 4 mg 04/13/21 00:48 04/13/21 00:54 Ondansetron 4 Mg/2 Ml Sdv IVPUSH 04/13/21 00:49 4 mg ONETIME ONE Administration Sucralfate 1 gm 04/13/21 00:34 04/13/21 01:03 Sucralfate Suspension 1 Gm/10 Ml Cup PO 04/13/21 00:35 1 gm ONETIME ONE Administration - Radiology Interpretation Free Text/Narrative:: chest x-ray with no acute findings, interpreted by radiology Ct abdomen pelvis with transverse and distal mild colitis. no free fluid no other acute findings. discussed with radiologist - Re-Assessments/Exams Free Text/Narrative Re-Assessment/Exam: 04/13/21 00:58 Patient is hyperventilating, in pain, perfers to lay on her right side. History of appendectomy, cholecystectomy, recent covid booster and history of covid 19. Recent unexplained weight loss, with a fever. Will get blood cultures, labs, ekg, chest x-ray abdominal ct./ Will give IV fluids, carafate one gram suspension PO, fentanyl 25 mcg IVP, zofran 4 mg IVP. once her nausea is better will give tylenol po for fever. 04/13/21 01:27 Patient is back from CT, feeling a little better, thinks can tolerate oral tylenol. States she has been having episodes of relapsing fever and chills without cause along with weight loss. Denies any exposure to diseases or vectors like malaria, yellow fever etc. 04/13/21 01:52 discussed with patient the need to continue her probiotics, will send with flagyl 500 mg #4 tablets to take bid. then scrip for 8 more days. advised to use something like maalox, pepto etc. will give magnesium citrate to go home with for constipation and caution with the zofran Departure - Departure Time of Disposition: 01:54 Disposition: Home, Self-Care 01 Clinical Impression: Fever, Abdominal pain, Colitis, Constipation - Discharge Information *PRESCRIPTION DRUG MONITORING PROGRAM REVIEWED*: Not Applicable *COPY OF PRESCRIPTION DRUG MONITORING REPORT IN PATIENT CIRO: Not Applicable Prescriptions: metroNIDAZOLE [Flagyl] 500 mg PO Q12H #16 tab Instructions: Abdominal Pain, Adult, [id number], Fever, Adult, [id number], Constipation, Adult, [id number], Colitis Forms: ED Department Discharge Additional Instructions: Testing today revealed normal labs, with labs negative for bacterial infection, heart attack, pancreatitis, pneumonia, bladder infection. The nausea medication can cause constipation. You are given a bottle of magnesium citrate. Drink this bottle in the morning and hydrate well. This should help with the constipation seen on the Abdominal CT. Keep your appointment with Dr. Ibarra for upper and lower endoscopy. continue to treat fevers and stay well hydrated. You have mild colitis which is inflammation of the mid and distal bowel. No signs of perforation of the bowel or free fluid. You are given flagyl, #4 tablets to take every 12 hours and then a prescription to fill Wednesday. Continue your probiotic Sepsis Event Note (ED) - Focused Exam Vital Signs: Vital Signs Temp Temp Pulse Resp BP Pulse Ox 04/13/21 01:33 38.3 C H 83 18 107/50 L 98 04/13/21 01:29 38.3 C H - My Orders Last 24 Hours: My Active Orders 04/13/21 00:34 Abdomen Pelvis w Cont [CT] Stat Chest 2V [CR] Stat Ondansetron [Zofran] 4 mg IVPUSH Q6H PRN Sodium Chloride 0.9% [Saline Flush] 10 ml FLUSH ASDIRECTED PRN Peripheral IV Insertion Adult [OM.PC] Routine 04/13/21 00:35 Peripheral IV Care [RC] . DIRECTED 04/13/21 01:00 Sodium Chloride 0.9% [Normal Saline] 1,000 ml IV ASDIRECTED 04/13/21 01:08 CULTURE BLOOD [BC] Stat - Assessment/Plan Last 24 Hours: My Active Orders 04/13/21 00:34 Abdomen Pelvis w Cont [CT] Stat Chest 2V [CR] Stat Ondansetron [Zofran] 4 mg IVPUSH Q6H PRN Sodium Chloride 0.9% [Saline Flush] 10 ml FLUSH ASDIRECTED PRN Peripheral IV Insertion Adult [OM.PC] Routine 04/13/21 00:35 Peripheral IV Care [RC] . DIRECTED 04/13/21 01:00 Sodium Chloride 0.9% [Normal Saline] 1,000 ml IV ASDIRECTED 04/13/21 01:08 CULTURE BLOOD [BC] Stat
[2021-04-13] MEDS ORDERED: Iopamidol 755 Mg/ML 100 ML Bottle IVPUSH ONE (00:57)
[2021-04-13] MEDS ORDERED: Sodium Chloride 0.9% 1,000 ML IV SCH (01:00)
[2021-04-13] MEDS ORDERED: Acetaminophen 500 MG Tab PO ONE (01:01)
[2021-04-13 01:12] LABS: CHLORIDE,CL 101 mEq/L (98-106); SODIUM,NA 138 mEq/L (136-145)
[2021-04-13 01:36] VITALS: BP 107/50; PULSE 83
[2021-04-13] MEDS ORDERED: Magnesium Citrate Solution 296 ML Bottle PO ONE (01:47)
[2021-04-13] MEDS ORDERED: Take Home: metroNIDAZOLE 500 MG Tab, 4 Tab Pack PO ONE (01:47)
== END 2021-04-13 02:10 | disposition home or self-care (01) ==
LOC: CC.ED 00:14
DX: K59.00 Constipation, unspecified (principal); K52.9 Noninfective gastroenteritis and colitis, unspecified; R50.9 Fever, unspecified; J45.909 Unspecified asthma, uncomplicated; Z88.5 Allergy status to narcotic agent; Z88.8 Allergy status to other drugs, medicaments and biological substances; Z88.1 Allergy status to other antibiotic agents; Z79.899 Other long term (current) drug therapy
CPT/HCPCS: 36415; 71046; 74177; 80053; 81003; 83605; 83690; 83735; 84484; 85027; 86140; 87040; 93005; 96374; 96375; 99284-25; A9270-GY; J2405; J3010; J7030; Q9967

== ENCOUNTER 2022-10-19 19:40 | Emergency (ER) | payer OTHER ==
[2022-10-19] MEDS ORDERED: methylPREDNISolone Sodium Succinate 40 MG/1 ML SDV IM ONE (20:02)
[2022-10-19] MEDS ORDERED: Take Home: Acetaminophen/HYDROcodone 325-5 MG, 2 Tab Pack PO ONE (20:03)
[2022-10-19 20:07] VITALS: BP 143/75; PULSE 79
[2022-10-19] MEDS ORDERED: cefTRIAXone 1 GM, Lidocaine 1% 1.2 ML IM SCH ×2 (20:15)
== END 2022-10-19 20:25 | disposition home or self-care (01) ==
LOC: CC.ED 19:40
DX: S60.561A Insect bite (nonvenomous) of right hand, initial encounter (principal); L03.113 Cellulitis of right upper limb; L02.511 Cutaneous abscess of right hand; Z88.5 Allergy status to narcotic agent; Z88.1 Allergy status to other antibiotic agents; Z88.8 Allergy status to other drugs, medicaments and biological substances; E78.00 Pure hypercholesterolemia, unspecified; J45.909 Unspecified asthma, uncomplicated; K21.9 Gastro-esophageal reflux disease without esophagitis; E03.9 Hypothyroidism, unspecified; Z79.899 Other long term (current) drug therapy; Z79.51 Long term (current) use of inhaled steroids; W57.XXXA Bitten or stung by nonvenomous insect and other nonvenomous arthropods, initial encounter
CPT/HCPCS: 96372; 99281; 99283; A9270-GY; J0696; J2920; J3490

== ENCOUNTER 2023-03-03 21:26 | Emergency (ER) | payer OTHER ==
[2023-03-03 22:03] LABS: BASOPHILS ABSOLUTE AUTO 0.03 10^3/uL (0.00-0.50); BASOPHILS PERCENT AUTO 0.6 % (0-1); EOSINOPHILS PERCENT AUTO 1.9 % (0-6); HEMOGLOBIN 12.5 g/dL (12.0-16.0); LYMPHOCYTES ABSOLUTE AUTO 1.95 10^3/uL (0.60-5.00); LYMPHOCYTES PERCENT AUTO 36.1 % (24-44); MEAN CORPUSCULAR HEMOGLOBIN 30.7 pg (27.0-32.0); MEAN CORPUSCULAR HGB CONC 33.8 g/dL (32.0-36.0); MEAN CORPUSCULAR VOLUME 90.9 fL (83.0-97.0); MONOCYTES ABSOLUTE AUTO 0.37 10^3/uL (0.00-1.50); MONOCYTES PERCENT AUTO 6.9 % (0-10); NEUTROPHILS ABSOLUTE AUTO 2.95 x10^3/uL (1.80-8.00); NEUTROPHILS PERCENT AUTO 54.5 % (41-71); PLATELET COUNT,PLT 191 10^3/uL (150-400); RED BLOOD CELL COUNT 4.07 x10^6/uL (4.00-5.50); WHITE BLOOD CELL COUNT,WBC 5.4 10^3/uL (4.0-11.0)
[2023-03-03] MEDS ORDERED: Aspirin 81 MG Tab.Chew PO ONE (22:13)
[2023-03-03 22:19] LABS: ALANINE AMINOTRANSFERASE,ALT 22 U/L (12-78); ALBUMIN 3.8 g/dL (3.4-5.0); ALKALINE PHOSPHATASE 65 U/L (46-116); ASPARTATE AMNIOTRANSFERASE,AST 17 U/L (15-37); BILIRUBIN TOTAL 0.2 mg/dL (0.0-1.0); BLOOD UREA NITROGEN,BUN 14 mg/dL (7-18); CALCIUM 9.1 mg/dL (8.4-10.1); CARBON DIOXIDE,CO2 30 mmol/L (21-32); CHLORIDE,CL 102 mEq/L (98-106); CREATININE 0.7 mg/dL (0.6-1.0); ESTIMATED GFR 92 mL/min (>=60); GLUCOSE RANDOM 140 mg/dL (75-99); LIPASE 15 U/L (16-77); MAGNESIUM 2.2 mg/dL (1.8-2.4); POTASSIUM,K 4.2 mEq/L (3.5-5.0); PROTEIN TOTAL,TP 6.9 g/dL (6.4-8.2); SODIUM,NA 140 mEq/L (136-145)
[2023-03-03 23:26] VITALS: BP 128/55; PULSE 65
== END 2023-03-03 22:45 | disposition home or self-care (01) ==
LOC: CC.ED 21:26
DX: M79.602 Pain in left arm (principal); E78.00 Pure hypercholesterolemia, unspecified; Z88.5 Allergy status to narcotic agent; Z88.1 Allergy status to other antibiotic agents; Z88.8 Allergy status to other drugs, medicaments and biological substances; Z79.899 Other long term (current) drug therapy; Z90.49 Acquired absence of other specified parts of digestive tract; Z90.710 Acquired absence of both cervix and uterus
CPT/HCPCS: 36415; 71045; 80053; 83690; 83735; 84484; 85025; 93005; 99284; A9270-GY